=== PATIENT | male | born 1955 | race Caucasian/White ===

== ENCOUNTER → 2018-05-31 | Outpatient (CLI) | payer BC ==
--- NOTE | 2018-05-31 14:15 | RAD ---
5 views of the lumbar spine without comparison for back pain There is straightening of the normal lumbar lordosis with advanced degenerative disc disease at L4-5 and L5-S1. Remaining intervertebral disc spaces are well-maintained. Moderate facet arthrosis at multiple lumbar levels as noted. Bulky marginal osteophytes throughout the thoracic spine are seen. Aortoiliac atherosclerosis is evident. There is mild levocurvature of the lumbar spine, likely degenerative. IMPRESSION: 1. No acute osseous or alignment abnormality of the lumbar spine. 2. Multilevel degenerative changes as described. 3. Aortoiliac atherosclerosis. Electronically signed by: Richmond John MD (05/31/2018 2:12 PM) [id number]
== END | disposition home or self-care (01) ==
LOC: PMG 10:46
PROVIDERS: ATTEND Physician Assistant Medical
DX: M47.896 Other spondylosis, lumbar region (principal); I70.0 Atherosclerosis of aorta; M25.78 Osteophyte, vertebrae; M51.37 Other intervertebral disc degeneration, lumbosacral region; M51.36 Other intervertebral disc degeneration, lumbar region; M40.46 Postural lordosis, lumbar region
CPT/HCPCS: 72110

== ENCOUNTER → 2020-09-18 | Outpatient (CLI) | payer BC ==
--- NOTE | 2020-09-18 12:10 | RAD ---
EXAM: Chest, 2 views. HISTORY: Cough. COMPARISON: None. FINDINGS: 2 views of the chest are obtained. There is no infiltrate, pleural effusion or pneumothorax . The heart is normal in size. IMPRESSION: No acute pulmonary finding. Electronically signed by: Maira Mccartney MD (09/18/2020 12:07 PM) [id number]
== END ==
LOC: RAD 11:41
PROVIDERS: ATTEND Family Medicine
DX: J18.9 Pneumonia, unspecified organism (principal); R05 Cough
CPT/HCPCS: 71046